=== PATIENT | male | born 1940 | race Caucasian/White ===

== ENCOUNTER 2020-09-17 13:58 | Emergency (ER) | payer OTHER, MEDICARE ==
[2020-09-17] MEDS ORDERED: SODIUM CHLORIDE 0.9% (FLUSH) 10 ML SYG IV PRN (14:05)
[2020-09-17] MEDS ORDERED: ONDANSETRON INJ 4 MG/2 ML VIAL IV ONE (14:06)
[2020-09-17] MEDS ORDERED: SODIUM CHLORIDE 0.9% 1000ML 1,000 ML IVS ONE (14:06)
--- NOTE | 2020-09-17 14:07 | ED.PDOC ---
History of Present Illness - General Time Seen by Provider: 09/17/20 14:05 Source: patient - History of Present Illness Initial Comments: Seen on ED arrival at 14:10. 80-year-old male who is brought in by for chief complaint of nausea and vomiting. Patient reports symptoms began just prior to ED arrival while riding in the car. He states he suddenly felt nauseous and had several episodes of mostly food containing emesis. Additionally reports symptoms of dizziness and mild gassy abdominal discomfort located to the lower abdominal region which is constant. He has not taken any medication for relief. Reports he had a normal bowel movement yesterday. Denies any fevers, chills, chest pain, shortness of breath, sore throat, headaches, body aches, diarrhea, urinary symptoms, leg swelling. Only prior abdominal surgery is appendectomy. No major medical issues besides Parkinson's disease. Denies any history of cardiac issues. No known recent sick contacts. Allergies/Adverse Reactions: Allergies NO KNOWN ALLERGY Allergy (Verified 09/17/20 14:43) Home Medications: Ambulatory Orders Atorvastatin Calcium [Lipitor] 10 mg PO DAILY 09/17/20 Ondansetron Odt [Zofran ODT] 8 mg PO Q8H PRN 5 Days #10 tab 09/17/20 Review of Systems - Review of Systems Review of Systems: 09/17/20 14:17 as per HPI All other Systems: Reviewed and Negative Family Medical History - Family History Mother Family History: Unknown Living Status: Unknown Physical Exam - Physical Exam General Appearance: Alert, Comfortable, No apparent distress Eye Exam: bilateral normal Ears, Nose, Throat: hearing grossly normal, normal ENT inspection Neck: non-tender, full range of motion, supple, normal inspection Respiratory: chest non-tender, lungs clear, normal breath sounds, no respiratory distress, no accessory muscle use Cardiovascular/Chest: normal peripheral pulses, no edema, no gallop, no JVD, no murmur, irregularly irregular Peripheral Pulses: radial,right: 2+, radial,left: 2+ Gastrointestinal/Abdominal: soft, no organomegaly, no pulsatile mass, abnormal bowel sounds - Hyperactive, tenderness - min lower abd ttp w/o guarding or rebound Back Exam: normal inspection, no CVA tenderness, no vertebral tenderness Extremity: normal range of motion, non-tender, normal inspection, no pedal edema, no calf tenderness, normal capillary refill Neurologic: plan rep II-XII nml as tested, no motor/sensory deficits, alert, normal mood/affect, other - 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 Skin Exam: normal color, warm/dry Progress - Progress Progress: 09/17/20 14:18 Acute nausea and vomiting -Consider gastroenteritis, acute pancreatitis, constipation, UTI, small bowel obstruction, ischemic colitis, diverticulitis, foodborne illness, other viral infection, COVID-19, influenza, ACS, other -Patient stable upon arrival -Obtain stat abdominal and cardiac work-up, rapid Covid and flu testing, UA, KUB, consider CT imaging -Place PIV, 1 L normal saline bolus, Zofran 4 mg IV 09/17/20 17:28 -Patient has remained stable in the ED without any further episodes of vomiting or other concerning symptoms. His vitals have remained stable. He has been at his normal baseline mental status since ED arrival. -Lab work revealed moderately elevated D-dimer level As well as positive strep testing but otherwise largely unremarkable. Rapid Covid and flu testing are negative. -CT imaging of the head reveals senescent changes but no acute processes. CTA chest shows no evidence of PE or other acute processes. CT abdomen pelvis reveals no acute processes. Coincidentally noted are approximately 5 cm hemangioma versus cyst in the liver as well as findings of moderate stool burden in the colon and left inguinal hernia. -Discussed all findings with patient and his at bedside as well as diag noses of acute gastroenteritis, strep pharyngitis, constipation. For strep we will treat in the ED with Bicillin 1,200,000 units IM. Advised [id number] laxatives for constipation. As needed Zofran prescription given for gastroenteritis. -I did offer to discuss the patient with the hospitalist for possible admission. However, patient and his declined as they would really like to go home. As the patient has been stable I feel this is reasonable. Follow-up closely with PCP. Discharged home with in good condition, strict return warnings discussed. Bebeto Shepherd MD Billing #[id number] 09/17/20 14:05 Sodium Chloride 0.9% (Flush) [Saline Flush Syringe] 10 ml IV PRN PRN 09/17/20 14:15 EKG STAT 09/17/20 14:35 LACTIC ACID Stat 09/17/20 15:10 Hold Metformin x 48Hrs [id number] 09/18/20 09:00 Pulse Ox Daily Laboratory Results - last 24 hr 09/17/20 09/17/20 09/17/20 14:20 14:35 14:35 WBC 10.2 RBC 4.33 L Hgb 13.9 L Hct 40.8 L MCV 94.3 H MCH 32.0 H MCHC 33.9 RDW 12.7 Plt Count 213 MPV 7.9 Absolute Neuts (auto) 6.30 Absolute Lymphs (auto) 3.10 Absolute Monos (auto) 0.70 Absolute Eos (auto) 0.10 Absolute Basos (auto) 0.10 Neutrophils % 61.7 Lymphocytes % 30.0 Monocytes % 6.6 Eosinophils % 0.9 L Basophils % 0.8 D-Dimer, Quantitative Sodium 141 Potassium 3.7 Chloride 108 Carbon Dioxide 23 Anion Gap 13.7 BUN 26 H Creatinine 1.01 BUN/Creatinine Ratio 25.7 H Random Glucose 110 H Serum Osmolality 286.7 Calcium 8.5 Magnesium 2.2 Total Bilirubin 1.3 H AST 16 ALT < 7 L Alkaline Phosphatase 62 Troponin I B-Natriuretic Peptide 71.6 Serum Total Protein 6.7 Albumin 4.2 Globulin 2.5 Albumin/Globulin Ratio 1.7 Urine Color Urine Appearance Urine pH Ur Specific [place] Urine Protein Urine Glucose (UA) Urine Ketones Urine Blood Urine Nitrite Urine Bilirubin Urine Urobilinogen Ur Leukocyte Esterase Urine RBC Urine WBC Ur Epithelial Cells Urine Bacteria Group A Strep Rapid 09/17/20 09/17/20 09/17/20 14:35 14:35 15:10 WBC RBC Hgb Hct MCV MCH MCHC RDW Plt Count MPV Absolute Neuts (auto) Absolute Lymphs (auto) Absolute Monos (auto) Absolute Eos (auto) Absolute Basos (auto) Neutrophils % Lymphocytes % Monocytes % Eosinophils % Basophils % D-Dimer, Quantitative 1290.0 H* Sodium Potassium Chloride Carbon Dioxide Anion Gap BUN Creatinine BUN/Creatinine Ratio Random Glucose Serum Osmolality Calcium Magnesium Total Bilirubin AST ALT Alkaline Phosphatase Troponin I < 0.02 B-Natriuretic Peptide Serum Total Protein Albumin Globulin Albumin/Globulin Ratio Urine Color Urine Appearance Urine pH Ur Specific [place] Urine Protein Urine Glucose (UA) Urine Ketones Urine Blood Urine Nitrite Urine Bilirubin Urine Urobilinogen Ur Leukocyte Esterase Urine RBC Urine WBC Ur Epithelial Cells Urine Bacteria Group A Strep Rapid Positive H 09/17/20 16:28 WBC RBC Hgb Hct MCV MCH MCHC RDW Plt Count MPV Absolute Neuts (auto) Absolute Lymphs (auto) Absolute Monos (auto) Absolute Eos (auto) Absolute Basos (auto) Neutrophils % Lymphocytes % Monocytes % Eosinophils % Basophils % D-Dimer, Quantitative Sodium Potassium Chloride Carbon Dioxide Anion Gap BUN Creatinine BUN/Creatinine Ratio Random Glucose Serum Osmolality Calcium Magnesium Total Bilirubin AST ALT Alkaline Phosphatase Troponin I B-Natriuretic Peptide Serum Total Protein Albumin Globulin Albumin/Globulin Ratio Urine Color Yellow Urine Appearance Clear Urine pH 7.0 Ur Specific [place] 1.020 Urine Protein Negative Urine Glucose (UA) Negative Urine Ketones Negative Urine Blood Negative Urine Nitrite Negative Urine Bilirubin Negative Urine Urobilinogen 0.2 Ur Leukocyte Esterase Negative Urine RBC 0 Urine WBC 0 Ur Epithelial Cells 0 Urine Bacteria 0 Group A Strep Rapid - EKG/XRAY/CT EKG: Sinus - Normal sinus rhythm with occasional PVCs, heart rate 80, no ST elevations noted, Q waves noted in anteroseptal lead indicative of likely prior infarct, borderline left axis deviation, slightly prolonged KS interval 204 ms, intervals otherwise normal, no prior EKG for comparison. XRAY: chest - No acute processes per my read Departure - Departure Clinical Impression: Gastroenteritis, Strep pharyngitis Time of Disposition: 17:26 Disposition: Discharge to Home or Self Care Condition: Good Instructions: Viral Gastroenteritis, Adult (DC), Strep Throat (DC) Diet: resume usual diet Activity: increase activity as tolerated Referrals: PETER NORRIS [Primary Care Provider] - 1-2 Weeks Prescriptions: Ondansetron Odt [Zofran ODT] 8 mg PO Q8H PRN 5 Days #10 tab PRN Reason: Nausea Home Medications: Ambulatory Orders Atorvastatin Calcium [Lipitor] 10 mg PO DAILY 09/17/20 Ondansetron Odt [Zofran ODT] 8 mg PO Q8H PRN 5 Days #10 tab 09/17/20 Additional Instructions: Remain well-hydrated and gradually advance diet and activity level as tolerated. You may take the Zofran as directed for nausea. Return to the ED if you develop new or concerning symptoms such as loss of consciousness, chest pain, shortness of breath, abdominal pain, frequent nausea and vomiting or diarrhea, etc. Follow-up closely in the next 3 to 5 days as recommended with your primary care doctor for repeat evaluation or sooner as needed.
--- NOTE | 2020-09-17 15:06 | RAD ---
EXAM DESCRIPTION: Chest,1 View CLINICAL HISTORY: Dyspnea, nausea COMPARISON: None. IMPRESSION: Single AP portable upright view of the chest shows cardiac silhouette and pulmonary vasculature to be within normal limits. Lungs are normally aerated and clear. No obvious pleural effusion or pneumothorax is seen. 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
--- NOTE | 2020-09-17 15:07 | RAD ---
EXAM DESCRIPTION: Abdomen 1 View CLINICAL HISTORY: acute nausea, vomiting, bloating COMPARISON: None. IMPRESSION: Single AP supine view of the abdomen shows a nonspecific, nonobstructive bowel gas pattern. Moderate increased volume of formed stool throughout the colon suggests constipation or obstipation. Air-filled nondilated loops of small bowel in the central abdomen are seen. No abnormal calcifications are seen in the region of the kidneys or renal collecting systems. Lung bases are not included in [id number]. Spondylitic changes of the lower lumbar spine are seen. 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 Electronically signed by: Mauri Lopes MD 09/17/2020 3:05 PM [facility]
--- NOTE | 2020-09-17 16:22 | CT ---
EXAM DESCRIPTION: CTA Chest CLINICAL HISTORY: 80 years Male, dizziness, nausea/vom, elevated d-dimer COMPARISON: Chest radiograph 09/17/2020. TECHNIQUE: CT images through the thorax with IV contrast using PE protocol. Multiplanar reformations provided. This examination was performed according to a CT angiographic (CTA) protocol with 3D post-processing. This involves 3D reconstructions, MIPS, volume rendered images and/or shaded surface rendering. This exam was performed according to our departmental dose-optimization program, which includes automated exposure control, adjustment of the mA and/or kV according to patient size and/or use of iterative reconstruction technique. CT CHEST PE FINDINGS: Pulmonary arteries and vascular: Diagnostic quality bolus. No filling defects. Mild atherosclerosis. Heart and mediastinum: Normal heart size. No pericardial effusion. Small hiatal hernia. No mediastinal or hilar adenopathy. Thyroid Gland: Normal. Lungs: Mild dependent atelectasis bilaterally.. Airways: Normal. Pleura: Normal. Musculoskeletal and Soft Tissues: No acute fracture or aggressive appearing osseous lesion. Soft tissues unremarkable. Subphrenic Structures: Please refer to concurrent CT abdomen and pelvis study. IMPRESSION: 1. No pulmonary embolus. 2. Small hiatal hernia. 3. Please refer to concurrent CT abdomen and pelvis study. Electronically signed by: Josh Swartz MD 09/17/2020 4:20 PM [employer]
--- NOTE | 2020-09-17 16:25 | CT ---
EXAM DESCRIPTION: Head CLINICAL HISTORY: 80 years Male, dizziness, syncope COMPARISON: None. TECHNIQUE: Axial images obtained from the skull base to the vertex without intravenous contrast with images. Coronal and sagittal reformations provided. This exam was performed according to our departmental dose-optimization program, which includes automated exposure control, adjustment of the mA and/or kV according to patient size and/or use of iterative reconstruction technique. Time Last Seen Well (If known) for Code Stroke: n/a FINDINGS: Brain Parenchyma, ventricles, meninges, and extra-axial spaces: Moderate generalized cerebral atrophy. Moderate Nonspecific white matter hypodensities in the cerebral hemispheres likely related to ischemic small vessel disease. Possible difficulty differentiating a small acute infarction given these hypodensities. No acute intracranial hemorrhage. No abnormal extra-axial fluid collection. Vascular: Atherosclerosis is within the carotid siphons. Calvarium, paranasal sinuses, mastoids, and orbits: Calvarium intact. Visualized paranasal sinuses and mastoid air cells clear. Bilateral lens replacement. IMPRESSION: 1. No acute intracranial abnormality. 2. Senescent changes. Electronically signed by: Josh Swartz MD 09/17/2020 4:23 PM [facility]
--- NOTE | 2020-09-17 16:34 | CT ---
EXAM DESCRIPTION: Abdomen/Pelvis w/Contrast CLINICAL HISTORY: 80 years Male, acute N/V, elevated T bili COMPARISON: Concurrent CTA chest 09/17/2020. Abdominal radiographs 2020. TECHNIQUE: CT of the abdomen and pelvis acquired with IV contrast material. Coronal and sagittal reformations provided. This exam was performed according to our departmental dose-optimization program, which includes automated exposure control, adjustment of the mA and/or kV according to patient size and/or use of iterative reconstruction technique. FINDINGS: Lung bases: Clear. Solid Organs: 5.6 cm hypodensity in the right hepatic dome which may represent hemangioma or cyst. Unremarkable spleen, pancreas, gallbladder without biliary ductal dilatation, adrenal glands, and kidneys. No ureteral stone hydronephroureter. GI tract: Small hiatal hernia. Stomach moderately distended gastric content. No small bowel obstruction. Large amount of well-formed stool scattered throughout the colon. The sigmoid colon herniates into the left inguinal canal. There is mucosal thickening luminal narrowing of the ascending colon. No pericolonic fluid collection. Scattered diverticula. Appendix is not identified. No pericecal inflammation. Vascular: Moderate atherosclerosis. Musculoskeletal and soft tissues: No acute fracture or aggressive appearing osseous lesion. Severe arthropathy of the right hip. Moderate fat-containing right inguinal hernia. Large inguinal hernia containing fat and loops of proximal sigmoid colon. Urinary bladder: Moderately distended. Prostate: Mildly enlarged measuring up to 4.9 cm maximal transverse dimension. Other: None. IMPRESSION: 1. Large left inguinal hernia is fat and stool filled loop of proximal sigmoid colon but no obstruction appreciated. 2. Large stool burden which can seen in consultation. 3. Scattered diverticulosis. Additionally, findings of the ascending colon can be due to peristalsis. However, mild or early infectious inflammatory colitis may be present. There is no pericolonic fluid collection. Appendix not definitively visualized. 4. Additional findings as above. Electronically signed by: Josh Swartz MD 09/17/2020 4:32 PM [employer]
[2020-09-17] MEDS ORDERED: PENICILLIN BENZATHINE 1.2 MU 1.2 MU/2 ML SYG IM ONE (17:25)
[2020-09-17 18:00] VITALS: BP 142/98; TEMP 98.3; O2SAT 98
== END 2020-09-17 17:55 | disposition home or self-care (01) ==
LOC: ER 13:58
DX: K52.9 Noninfective gastroenteritis and colitis, unspecified (principal); J02.0 Streptococcal pharyngitis; I49.3 Ventricular premature depolarization; R42 Dizziness and giddiness; G20 Parkinson's disease; Z90.49 Acquired absence of other specified parts of digestive tract; Z20.822 Contact with and (suspected) exposure to COVID-19
CPT/HCPCS: 36415; 70450; 71045; 71275; 74018; 74177; 80053; 81001; 83605; 83735; 83880; 84484; 85025; 85379; 87502; 87635; 87880; 93005; J0561; J2405; J7030